=== PATIENT | male | born 1990 | race Caucasian/White ===

== ENCOUNTER 2018-10-29 22:31 | Inpatient (IN) | payer SELFPAY ==
[~2018-10-29] VITALS: Ht 188 cm; Wt 200.3 kg
--- NOTE | 2018-10-29 22:43 | ED.ADGEN ---
Past History Past Medical History: Other Additional Past Medical Histor: Prader Tyrell syndrome Adult General Chief Complaint Chief Complaint ".. I got something going on... in my foot (Lt.) HPI HPI Patient is a 27 year old male who presents with Lt. heel and ankle cellulitis x 2 days. Suspect infection started in a dry skin heel crack. Patient's progression to marked edema as erythema occurred abruptly in less than 24 hours . Patient entire left foot and ankle to mid millard swollen red and warm to touch. No striations or adenopathy appreciated. Patient's last tetanus was more than 8 years ago. Patient has not seen a doctor in over 8 years. Patient does have a past history of Prader-Willi syndrome. No history of travel or specific ill contacts. No history of immunosuppression. Review of Systems Review of Systems Constitutional: Denies fever or chills [] Eyes: Denies change in visual acuity, redness, or eye pain [] HENT: Denies nasal congestion or sore throat [] Respiratory: Denies cough or shortness of breath [] Cardiovascular: No additional information not addressed in HPI [] GI: Denies abdominal pain, nausea, vomiting, bloody stools or diarrhea [] : Denies dysuria or hematuria [] Musculoskeletal: Denies back pain or joint pain . Pt.[]complaints of left foot edema and cellulitis Integument: Denies rash or skin lesions [] Neurologic: Denies headache, focal weakness or sensory changes [] Endocrine: Denies polyuria or polydipsia [] All other systems were reviewed and found to be within normal limits, except as documented in this note. Family History Family History Noncontributory Current Medications Current Medications Current Medications Medications (Trade) Dose Ordered Sig/Karl Start Time Stop Time Status Last Admin Dose Admin Acetaminophen (Tylenol) 650 mg PRN Q4HRS PRN 10/29/18 23:45 10/30/18 23:44 Ceftriaxone Sodium 1 gm/ Sodium Chloride 50 ml @ 100 mls/hr 1X ONCE 10/29/18 22:45 10/29/18 23:14 UNV Ceftriaxone Sodium (Rocephin) 1 gm STK-MED ONCE 10/29/18 23:34 10/29/18 23:36 DC Diphtheria/ Tetanus/Acell Pertussis (Boostrix) 0.5 ml ONCE ONCE 10/29/18 23:45 10/29/18 23:46 DC 10/29/18 23:46 0.5 ML Enoxaparin Sodium (Lovenox 150mg Syringe) 150 mg Q12HR 10/30/18 00:00 10/30/18 00:00 150 MG Info (Anti-Coagulation Monitoring By Pharmacy) 1 each PRN DAILY PRN 10/29/18 23:45 Lactated Ringer's 1,000 ml @ 1,000 mls/hr Q1H 10/29/18 23:30 10/30/18 00:29 DC 10/29/18 23:43 1,000 MLS/HR Ondansetron HCl (Zofran) 4 mg PRN Q4HRS PRN 10/29/18 23:45 10/30/18 23:44 Tetanus/ Diphtheria Toxoids Adsorbed (Tenivac Vial) 0.5 ml ONCE ONCE 10/29/18 23:30 10/29/18 23:31 DC Trimethoprim/ Sulfamethoxazole (Bactrim Ds) 1 tab 1X ONCE 10/29/18 23:30 10/29/18 23:31 DC 10/29/18 23:44 1 TAB See nursing for home meds Allergies Allergies Allergies Coded Allergies Type Severity Reaction Last Updated Verified No Known Drug Allergies 10/29/18 No Physical Exam Physical Exam Constitutional: Moderately acute distress, non-toxic appearance. [] HENT: Normocephalic, atraumatic, bilateral external ears normal, oropharynx moist, no oral exudates, nose normal. [] Eyes: PERRLA, EOMI, conjunctiva normal, no discharge. [] Neck: Normal range of motion, no tenderness, supple, no stridor. [] Cardiovascular:Heart rate regular rhythm, no murmur [] Lungs & Thorax: Bilateral breath sounds clear to auscultation [] Abdomen: Bowel sounds normal, soft, no tenderness, no masses, no pulsatile masses. Morbidly Obese. Skin: Warm, dry, Lt. foot and ankle cellulitis Back: No tenderness, no CVA tenderness. [] Extremities: No tenderness, no cyanosis, no clubbing, ROM intact, no edema. [] Except finding s of cellulitis and edema Lt. foot and ankle . Pt. rates pain 2- 4/10. Neurologic: Alert and oriented X 3, normal motor function, normal sensory function, no focal deficits noted. [] Psychologic: Affect anxious, judgement normal, mood normal. [] Current Patient Data Vital Signs Vital Signs Date Time Temp Pulse Resp B/P (MAP) Pulse Ox O2 Delivery O2 Flow Rate FiO2 10/30/18 00:14 98.9 77 24 126/69 (88) 99 Room Air Lab Results Laboratory Tests Test 10/29/18 23:00 White Blood Count 6.5 x10^3/uL (4.0-11.0) Red Blood Count 5.51 x10^6/uL (4.30-5.70) Hemoglobin 14.6 g/dL (13.0-17.5) Hematocrit 43.8 % (39.0-53.0) Mean Corpuscular Volume 80 fL (79-100) Mean Corpuscular Hemoglobin 27 pg (25-35) Mean Corpuscular Hemoglobin Concent 33 g/dL (31-37) Red Cell Distribution Width 14.8 % (11.5-14.5) H Platelet Count 193 x10^3/uL (140-400) Neutrophils (%) (Auto) 55 % (31-73) Lymphocytes (%) (Auto) 26 % (24-48) Monocytes (%) (Auto) 18 % (0-9) H Eosinophils (%) (Auto) 1 % (0-3) Basophils (%) (Auto) 1 % (0-3) Neutrophils # (Auto) 3.6 x10^3uL (1.8-7.7) Lymphocytes # (Auto) 1.7 x10^3/uL (1.0-4.8) Monocytes # (Auto) 1.1 x10^3/uL (0.0-1.1) Eosinophils # (Auto) 0.1 x10^3/uL (0.0-0.7) Basophils # (Auto) 0.0 x10^3/uL (0.0-0.2) Erythrocyte Sedimentation Rate 81 (0-15) H D-Dimer (Carolin) 1.17 mg/L (0.00-0.50) H Sodium Level 138 mmol/L (136-145) Potassium Level 3.4 mmol/L (3.5-5.1) L Chloride Level 101 mmol/L (98-107) Carbon Dioxide Level 27 mmol/L (21-32) Anion Gap 10 (6-14) Blood Urea Nitrogen 10 mg/dL (8-26) Creatinine 0.9 mg/dL (0.7-1.3) Estimated GFR (Cockcroft-Gault) 99.8 Glucose Level 91 mg/dL (70-99) Lactic Acid Level 1.0 mmol/L (0.4-2.0) Calcium Level 8.6 mg/dL (8.5-10.1) Magnesium Level 2.1 mg/dL (1.8-2.4) Total Bilirubin 0.4 mg/dL (0.2-1.0) Direct Bilirubin 0.2 mg/dL (0.0-0.2) Aspartate Amino Transferase (AST) 39 U/L (15-37) H Alanine Aminotransferase (ALT) 49 U/L (16-63) Alkaline Phosphatase 66 U/L (46-116) Creatine Kinase 300 U/L (39-308) Total Protein 7.8 g/dL (6.4-8.2) Albumin 2.8 g/dL (3.4-5.0) L EKG EKG [] Radiology/Procedures Radiology/Procedures My interpretation of left foot and ankle x-ray shows-edema[] and degenerative joint changes. Course & Med Decision Making Course & Med Decision Making Pertinent Labs and Imaging studies reviewed. (See chart for details) Pt. admitted Dr. Bland for further tx. and evaluation. [] Final Impression Final Impression 1. Cellulitis Lt foot and ankle 2. History of Prader-Willi syndrome[] 3. Elevated D-dimer-1.17 4. Malnutrition Albumin 2.8 5. Morbid Obesity 6. Degenerative joint changes. 7. Elevated Sed. Rate 81 Dragon Disclaimer Dragon Disclaimer This electronic medical record was generated, in whole or in part, using a voice recognition dictation system. Dragon Disclaimer This chart was dictated in whole or in part using Voice Recognition software in a busy, high-work load, and often noisy Emergency Department environment. It may contain unintended and wholly unrecognized errors or omissions. Discharge Summary Visit Information Final Diagnosis Problems Medical Problems: (1) Cellulitis and abscess of left leg Status: Acute Brief Hospital Course Allergies Allergies Coded Allergies Type Severity Reaction Last Updated Verified No Known Drug Allergies 10/29/18 No Vital Signs Vital Signs Date Time Temp Pulse Resp B/P (MAP) Pulse Ox O2 Delivery O2 Flow Rate FiO2 2/3/19 00:14 98.9 77 24 126/69 (88) 99 Room Air Lab Results Laboratory Tests Test 10/29/18 23:00 White Blood Count 6.5 x10^3/uL (4.0-11.0) Red Blood Count 5.51 x10^6/uL (4.30-5.70) Hemoglobin 14.6 g/dL (13.0-17.5) Hematocrit 43.8 % (39.0-53.0) Mean Corpuscular Volume 80 fL (79-100) Mean Corpuscular Hemoglobin 27 pg (25-35) Mean Corpuscular Hemoglobin Concent 33 g/dL (31-37) Red Cell Distribution Width 14.8 % (11.5-14.5) Platelet Count 193 x10^3/uL (140-400) Neutrophils (%) (Auto) 55 % (31-73) Lymphocytes (%) (Auto) 26 % (24-48) Monocytes (%) (Auto) 18 % (0-9) Eosinophils (%) (Auto) 1 % (0-3) Basophils (%) (Auto) 1 % (0-3) Neutrophils # (Auto) 3.6 x10^3uL (1.8-7.7) Lymphocytes # (Auto) 1.7 x10^3/uL (1.0-4.8) Monocytes # (Auto) 1.1 x10^3/uL (0.0-1.1) Eosinophils # (Auto) 0.1 x10^3/uL (0.0-0.7) Basophils # (Auto) 0.0 x10^3/uL (0.0-0.2) Erythrocyte Sedimentation Rate 81 (0-15) D-Dimer (Carolin) 1.17 mg/L (0.00-0.50) Sodium Level 138 mmol/L (136-145) Potassium Level 3.4 mmol/L (3.5-5.1) Chloride Level 101 mmol/L (98-107) Carbon Dioxide Level 27 mmol/L (21-32) Anion Gap 10 (6-14) Blood Urea Nitrogen 10 mg/dL (8-26) Creatinine 0.9 mg/dL (0.7-1.3) Estimated GFR (Cockcroft-Gault) 99.8 Glucose Level 91 mg/dL (70-99) Lactic Acid Level 1.0 mmol/L (0.4-2.0) Calcium Level 8.6 mg/dL (8.5-10.1) Magnesium Level 2.1 mg/dL (1.8-2.4) Total Bilirubin 0.4 mg/dL (0.2-1.0) Direct Bilirubin 0.2 mg/dL (0.0-0.2) Aspartate Amino Transf (AST/SGOT) 39 U/L (15-37) Alanine Aminotransferase (ALT/SGPT) 49 U/L (16-63) Alkaline Phosphatase 66 U/L (46-116) Creatine Kinase 300 U/L (39-308) Total Protein 7.8 g/dL (6.4-8.2) Albumin 2.8 g/dL (3.4-5.0) Brief Hospital Course Mr. Chamberlain is a 27 old male who presented with Prader Willi Syndrome with Lt. foot and ankle cellulitis. Admitted to Dr Bland. Discharge Information Condition at Discharge: Stable Dischare Medications Current Medications Lactated Ringer's 1,000 ml @ 1,000 mls/hr Q1H IV Last administered on at 23:43; Admin Dose 1,000 MLS/HR; Start 10/29/18 at 23:30; Stop 10/30/18 at 00: 29; Status DC Ceftriaxone Sodium 1 gm/ Sodium Chloride 50 ml @ 100 mls/hr 1X ONCE IV ; Start 10/29/18 at 22:45; Stop 10/29/18 at 23:14; Status UNV Trimethoprim/ Sulfamethoxazole (Bactrim Ds) 1 tab 1X ONCE PO Last administered on 10/29/18at 23:44; Admin Dose 1 TAB; Start 10/29/18 at 23:30; Stop 10/29/18 at 23:31; Status DC Tetanus/ Diphtheria Toxoids Adsorbed (Tenivac Vial) 0.5 ml ONCE ONCE VAX IM ; Start 10/29/18 at 23:30; Stop 10/29/18 at 23:31; Status DC Ceftriaxone Sodium (Rocephin) 1 gm 1X ONCE IVP Last administered on 10/29/18at 23:44; Admin Dose 1 GM; Start 10/29/18 at 23:45; Stop 10/29/18 at 23:46; Status DC Diphtheria/ Tetanus/Acell Pertussis (Boostrix) 0.5 ml ONCE ONCE VAX IM Last administered on 10/29/18at 23:46; Admin Dose 0.5 ML; Start 10/29/18 at 23:45; Stop 10/29/18 at 23:46; Status DC Ceftriaxone Sodium (Rocephin) 1 gm STK-MED ONCE .ROUTE ; Start 10/29/18 at 23:34 ; Stop 10/29/18 at 23:36; Status DC Enoxaparin Sodium (Lovenox 150mg Syringe) 150 mg Q12HR SQ Last administered on 10/30/18at 00:00; Admin Dose 150 MG; Start 10/30/18 at 00:00 Info (Anti-Coagulation Monitoring By Pharmacy) 1 each PRN DAILY PRN MC SEE COMMENTS; Start 10/29/18 at 23:45 Ondansetron HCl (Zofran) 4 mg PRN Q4HRS PRN IV NAUSEA/VOMITING; Start 10/29/18 at 23:45; Stop 10/30/18 at 23:44 Acetaminophen (Tylenol) 650 mg PRN Q4HRS PRN PO FEVER; Start 10/29/18 at 23:45; Stop 10/30/18 at 23:44 Active Scripts Active Reported Acetaminophen 500 Mg Tablet 1,000 Mg PO Q8HRS ARTUR HARRISON MD Oct 29, 2018 22:43
[2018-10-29] MEDS ORDERED: ACET500T68 PO (23:16)
[2018-10-29 23:20] LABS: BASO % 1 % (0-3); EOS # 0.1 x10^3/uL (0.0-0.7); EOS % 1 % (0-3); HEMATOCRIT 43.8 % (39.0-53.0); HEMOGLOBIN 14.6 g/dL (13.0-17.5); LYMPH # 1.7 x10^3/uL (1.0-4.8); LYMPH % 26 % (24-48); MEAN CORPUSCULAR HEMOGLOBIN 27 pg (25-35); MEAN CORPUSCULAR HGB CONC 33 g/dL (31-37); MEAN CORPUSCULAR VOLUME 80 fL (79-100); MONO # 1.1 x10^3/uL (0.0-1.1); MONO % 18 % (0-9); NEUT # 3.6 x10^3uL (1.8-7.7); NEUT % 55 % (31-73); PLATELET COUNT 193 x10^3/uL (140-400); RED BLOOD COUNT 5.51 x10^6/uL (4.30-5.70); RED CELL DISTRIBUTION WIDTH 14.8 % (11.5-14.5); WHITE BLOOD COUNT 6.5 x10^3/uL (4.0-11.0)
[2018-10-29] MEDS ORDERED: IV RINGERS SOLUTION,LACTATED 1,000 ML IV SCH (23:30)
[2018-10-29] MEDS ORDERED: TETANUS AND DIPHTHERIA TOX/PF 0.5 ML VIAL. VAX IM ONE (23:30)
[2018-10-29] MEDS ORDERED: SMZ/TMP 800/160MG TABLET. PO ONE (23:30)
[2018-10-29 23:32] LABS: ALBUMIN 2.8 g/dL (3.4-5.0); CALCIUM 8.6 mg/dL (8.5-10.1); CREATININE 0.9 mg/dL (0.7-1.3); DIRECT BILIRUBIN 0.2 mg/dL (0.0-0.2); GFR 99.8; MAGNESIUM 2.1 mg/dL (1.8-2.4); POTASSIUM 3.4 mmol/L (3.5-5.1); TOTAL BILIRUBIN 0.4 mg/dL (0.2-1.0); TOTAL PROTEIN 7.8 g/dL (6.4-8.2)
[2018-10-29] MEDS ORDERED: cefTRIAXone SODIUM 1 GM VIAL ONE (23:34)
[2018-10-29] MEDS ORDERED: ANTI-COAG MONITOR BY PHARMACY. MC PRN (23:45)
[2018-10-29] MEDS ORDERED: ONDANSETRON PF 4 MG/2 ML VIAL. IV PRN (23:45)
[2018-10-29] MEDS ORDERED: DIPHTH,PERTUSS(ACELL),TET TOX 0.5 ML DISP.SYRIN. VAX IM ONE (23:45)
[2018-10-29] MEDS ORDERED: cefTRIAXone IV Push 1 GM VIAL. IVP ONE (23:45)
[2018-10-29] MEDS ORDERED: ACETAMINOPHEN 325 MG TABLET PO PRN (23:45)
--- NOTE | 2018-10-30 00:10 | RAD ---
EXAM: 1. Left ankle 3 views. 2. Left foot 3 views. HISTORY: Left foot/ankle pain, edema and redness. COMPARISON: None. FINDINGS: There is diffuse soft tissue swelling throughout the foot and ankle. There is no soft tissue gas or cortical erosion. No fractures are appreciated about the ankle. 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 There is a prominent bump within overlying accessory ossicle along the most anterior aspect of the talar neck. Correlate for anterior ankle impingement. There is mild focal cortical thickening along the medial aspect of the second metatarsal diaphysis without a clear fracture line. There is ossification of the capsular insertion along the lateral aspect of the second metatarsophalangeal joint. Alignment within the foot is maintained. IMPRESSION: 1. Diffuse soft tissue swelling. Correlate for cellulitis or a systemic/regional edematous process. 2. Correlate for forefoot pain to exclude a second metatarsal stress lesion. MRI could further assess for stress fractures if there is persistent concern. 3. 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 Correlate for anterior ankle impingement. Electronically signed by: Gail Ramey MD (10/30/2018 12:05 AM) [facility]
[2018-10-30 00:24] LABS: SEDIMENTATION RATE 81 (0-15)
[2018-10-30 00:43] VITALS: BP 179/84
[2018-10-30] MEDS: IV RINGERS SOLUTION,LACTATED 1,000 ML IV SCH ×3 (00:55→10:30)
[2018-10-30 05:56] VITALS: BP 139/87
[2018-10-30 07:48] LABS: BASO % 1 % (0-3); EOS # 0.1 x10^3/uL (0.0-0.7); EOS % 2 % (0-3); HEMATOCRIT 40.3 % (39.0-53.0); HEMOGLOBIN 13.2 g/dL (13.0-17.5); LYMPH # 1.6 x10^3/uL (1.0-4.8); LYMPH % 30 % (24-48); MEAN CORPUSCULAR HEMOGLOBIN 26 pg (25-35); MEAN CORPUSCULAR HGB CONC 33 g/dL (31-37); MEAN CORPUSCULAR VOLUME 80 fL (79-100); MONO # 0.9 x10^3/uL (0.0-1.1); MONO % 16 % (0-9); NEUT # 2.8 x10^3uL (1.8-7.7); NEUT % 52 % (31-73); PLATELET COUNT 190 x10^3/uL (140-400); RED BLOOD COUNT 5.05 x10^6/uL (4.30-5.70); RED CELL DISTRIBUTION WIDTH 14.5 % (11.5-14.5); WHITE BLOOD COUNT 5.4 x10^3/uL (4.0-11.0)
[2018-10-30 07:56] LABS: CALCIUM 8.4 mg/dL (8.5-10.1); CREATININE 0.8 mg/dL (0.7-1.3); GFR 114.3; POTASSIUM 3.6 mmol/L (3.5-5.1)
[2018-10-30] MEDS: SMZ/TMP 800/160MG TABLET. PO SCH ×2 (08:48→20:49)
[2018-10-30] MEDS: ENOXAPARIN ** NOTE DOSE ** SYRINGE SQ SCH ×3 (08:48→20:50)
--- NOTE | 2018-10-30 09:07 | RAD ---
LEFT LOWER EXTREMITY ULTRASOUND WITH DOPPLER 10/30/2018 7:30 AM Clinical Information: Left leg swelling. Comparison: None. Technique: Multiple grayscale, color Doppler, and spectral Doppler sonographic images of the lower extremity venous structures were obtained. Findings: Greater saphenous vein is patent. The left common femoral, femoral, and popliteal veins exhibit normal compression, respiratory phasicity, and augmentation. No intraluminal thrombi are identified. Color Doppler flow is demonstrated in the left peroneal veins. Impression: 1. No evidence of deep venous thrombosis. Electronically signed by: Elisa Stock MD (10/30/2018 9:02 AM) [facility]
[2018-10-30] MEDS: CALCIUM CARBONATE 500 MG TAB.CHEW PO PRN ×2 (09:19→13:54)
[2018-10-30 11:06] VITALS: BP 139/73
--- NOTE | 2018-10-30 11:35 | HP ---
ADMIT DATE: 10/30/2018 HISTORY OF PRESENT ILLNESS: The patient is a 27-year-old male patient, who came to the Emergency Room complaining of pain, swelling, redness in his left heel and ankles started about 2 days ago. That has increased to marked edema and erythema has started abruptly over the last 24 hours. His entire left foot and ankle to mid millard swollen, red, and warm to touch. No adenopathy appreciated. The patient's last tetanus was more than 8 years ago. He has not seen a doctor in over 8 years. The patient does have the past history of Prader-Willi syndrome and he was admitted, was extensively investigated in the Emergency Room, was found to have cellulitis of left foot. He was also found to have elevated D-dimer, morbid obesity, degenerative joint disease and elevated sedimentation rate. He was started on IV vancomycin, IV ceftriaxone and oral Bactrim. PAST MEDICAL HISTORY: Significant for Prader-Willi syndrome. PAST SURGICAL HISTORY: Significant for left-sided mastoidectomy, tonsillectomy, wisdom tooth extraction. ALLERGIES: No known drug allergies. MEDICATIONS: He takes [id number] Tylenol. FAMILY HISTORY: Father is alive and has hypertension. Mother is healthy. One younger brother is healthy. SOCIAL HISTORY: He lives with his family. He does not smoke, drinks alcohol occasionally. Does not use any drugs. He is unemployed. REVIEW OF SYSTEMS: The patient denied any blurring of vision, cataract, glaucoma or macular degeneration. Denied any earache, tinnitus or sensorineural deafness. Denied any nosebleeds, stuffy nose or postnasal drip. Denied any sore throat, sore tongue, toothache, hoarseness of voice or difficulty swallowing. Denied any nausea, vomiting, diarrhea or constipation. Denied any hematemesis or melena and almost hematochezia. He did complain of apparently chills and fever. PHYSICAL EXAMINATION: GENERAL: On examining him, he was resting, slightly propped up in bed, in no apparent respiratory distress. No pallor, jaundice or cyanosis. No lymphadenopathy, no thyromegaly. No jugular venous distension. No limb edema. VITAL SIGNS: His heart rate was 76, blood pressure was 139/87, temperature was 98.3, respiratory rate was 18 and oxygen saturation was 98%. HEAD, EYES, EARS, NOSE AND THROAT: Showed normocephalic, atraumatic. NECK: Supple. HEART: Showed normal first and second heart sounds with no gallop, rub or murmur. CHEST: Clear to auscultation. No crepitation or rhonchi. ABDOMEN: Distended, soft, nontender. NEUROLOGIC: He was awake, alert, responding appropriately. All cranial nerves intact. EXTREMITIES: He moves extremities without difficulty. He has marked swelling of his left foot and leg with erythema extending to his left knee. LABORATORY DATA: While in the Emergency Room had lab work done, which showed his white cell count was 6500, hemoglobin 14, hematocrit 44, MCV 80 and platelet count of 193,000. His D-dimer was elevated at 1.17. His chemistry showed serum sodium 138, potassium 3.4, chloride 101, bicarbonate is 27, anion gap of 10, BUN 10, creatinine 0.9, estimated GFR was 99 mL per minute. His glucose was 91, lactic acid was only 1. Calcium was 8.6. Magnesium 2.1. Total bilirubin, AST, ALT, alkaline phosphatase were normal. Total protein was 7.8, albumin was 2.8. TSH was normal at 1.228. He did have an x-ray of his left foot, which showed that the patient has diffuse soft tissue swelling, correlate for cellulitis or systemic original edematous process. He has subtalar osteoarthritis, appears at least moderate correlate for anterior ankle impingement. He has x-ray of the left ankle. His Doppler ultrasound showed no evidence of any deep vein thrombosis. ASSESSMENT AND PLAN: The patient was admitted with left lower extremity cellulitis. He is on ceftriaxone as well as IV and oral Bactrim. I will probably discontinue his IV fluid and cut down his Lovenox to DVT prophylaxis. SILVIA BISHOP MD DR: BEKA/olvin JOB#: [id number] / [id number]
[2018-10-30 14:49] VITALS: BP 149/89
[2018-10-30 19:43] VITALS: BP 156/82
[2018-10-30] MEDS: LACTOBACILLUS RHAMNOSUS GG 1 CAPSULE. PO SCH (20:49)
[2018-10-30 23:21] VITALS: BP 139/92
[2018-10-31 05:39] VITALS: BP 136/81
[2018-10-31 06:27] LABS: HEMATOCRIT 41.1 % (39.0-53.0); HEMOGLOBIN 13.4 g/dL (13.0-17.5); RED BLOOD COUNT 5.13 x10^6/uL (4.30-5.70); RED CELL DISTRIBUTION WIDTH 14.7 % (11.5-14.5); WHITE BLOOD COUNT 5.8 x10^3/uL (4.0-11.0)
[2018-10-31 06:43] LABS: ALBUMIN 2.7 g/dL (3.4-5.0); ALBUMIN/GLOBULIN RATIO 0.6 (1.0-1.7); CALCIUM 8.5 mg/dL (8.5-10.1); CREATININE 0.9 mg/dL (0.7-1.3); GFR 99.8; POTASSIUM 4.1 mmol/L (3.5-5.1); TOTAL BILIRUBIN 0.4 mg/dL (0.2-1.0); TOTAL PROTEIN 7.1 g/dL (6.4-8.2)
[2018-10-31] MEDS: SMZ/TMP 800/160MG TABLET. PO SCH ×2 (08:56→21:10)
[2018-10-31] MEDS: LACTOBACILLUS RHAMNOSUS GG 1 CAPSULE. PO SCH ×2 (08:56→21:10)
[2018-10-31 11:00] VITALS: BP 140/85
[2018-10-31] MEDS: ENOXAPARIN ** NOTE DOSE ** SYRINGE SQ SCH ×2 (11:21→21:11)
--- NOTE | 2018-10-31 11:40 | PN ---
DATE: 10/31/2018 SUBJECTIVE: The patient is resting, slightly propped up in bed, in no apparent distress. He was admitted with the left lower extremity cellulitis. His redness and swelling are slowly improving, but he obviously would benefit from more treatment with IV antibiotic for now, I would keep him one more day and hopefully discharge him back home to continue an oral antibiotic. PHYSICAL EXAMINATION: GENERAL: When I saw him this morning, he looked well and was clearly in no apparent respiratory distress. No pallor, jaundice, cyanosis, or thyromegaly. No jugular venous distension. No limb edema. VITAL SIGNS: His heart rate was 73, blood pressure was 136/81, temperature was 99.2, respiratory rate was 18 and oxygen saturation was 96%. HEAD, EYES, EARS, NOSE AND THROAT: Showed normocephalic, atraumatic. NECK: Supple. HEART: Showed normal first and second heart sounds. No gallop, rub or murmur. CHEST: Clear to auscultation. No crepitation or rhonchi. ABDOMEN: Distended, soft, nontender. NEUROLOGIC: He is awake, alert, responding appropriately. Cranial nerves intact. He moves extremities without difficulty. He ambulates without assistance or assistive devices. The redness and swelling of his left lower extremity is slightly better. His intake was 2150, no output was recorded. LABORATORY DATA: Her lab work this morning showed a white cell count of 5800, hemoglobin 13, hematocrit 41, MCV 80, and platelet count 200,000. His serum sodium was 141, potassium 4.1, chloride 105, bicarbonate 29, anion gap of 7, BUN 8, creatinine 0.9, estimated GFR was 99 mL per minute, his glucose was 89, calcium was 8.5. Total bilirubin, AST, ALT, and alkaline phosphatase were normal. His total protein was 2.7. ASSESSMENT: 1. Left lower extremity cellulitis, which he is on IV ceftriaxone and Bactrim. 2. Prader-Willi syndrome. 3. Morbid obesity, possible obstructive sleep apnea. PLAN: To continue with IV antibiotic for now. We will hopefully discharge him back home to continue on oral antibiotic tomorrow. SILVIA BISHOP MD DR: BEKA/olvin JOB#: [id number] / [id number]
[2018-10-31 15:00] VITALS: BP 138/88
[2018-10-31 19:16] VITALS: BP 117/74
[2018-10-31 23:04] VITALS: BP 147/85
[2018-11-01 06:11] VITALS: BP 152/96
[2018-11-01] MEDS: SMZ/TMP 800/160MG TABLET. PO SCH (08:09)
[2018-11-01] MEDS: LACTOBACILLUS RHAMNOSUS GG 1 CAPSULE. PO SCH (08:09)
[2018-11-01] MEDS: ENOXAPARIN ** NOTE DOSE ** SYRINGE SQ SCH (08:10)
[2018-11-01 10:41] VITALS: BP 150/84
[2018-11-01] MEDS ORDERED: SULF1TAB24 PO (11:28)
== END 2018-11-01 11:47 | disposition home or self-care (01) | DRG 603 ==
LOC: ER 22:31 → 1 SOUTH 10-30 00:22
PROVIDERS: ADMIT Internal Medicine; ATTEND Internal Medicine
DX: L03.116 Cellulitis of left lower limb (principal); Z68.43 Body mass index [BMI] 50.0-59.9, adult; E66.01 Morbid (severe) obesity due to excess calories; G47.33 Obstructive sleep apnea (adult) (pediatric); R79.1 Abnormal coagulation profile; M19.90 Unspecified osteoarthritis, unspecified site; Z82.49 Family history of ischemic heart disease and other diseases of the circulatory system; Z90.49 Acquired absence of other specified parts of digestive tract; Z79.899 Other long term (current) drug therapy
CPT/HCPCS: 36415; 73610; 73630; 80048; 80053; 80076; 82550; 83605; 83735; 84443; 85025; 85027; 85379; 85651; 87040; 90471; 90715; 90756; 93971; 96361; 96374; J0696; J1650; J7120; 99285-25; Q2035